=== PATIENT | female | born 1990 | race Hispanic/Latino ===

== ENCOUNTER → 2025-01-26 | Day surgery (SDC) | payer SELFPAY ==
[~2025-01-26] MED LIST: DICYCLOMINE HCL10 MG PO; DOXYCYCLINE HY100 MG PO; FAMOTIDINE20 MG PO; LIDOCAINE HCL 2% LOCAL INJ 5 ML SDV VIAL INJ ONE; MIDAZOLAM HCL 2 MG/2 ML VIAL ONE; MULTI-VITAMIN1 EACH PO; PROPOFOL IV EMULSION 10 MG/ML 20 ML VIAL ONE
[2025-01-26] MEDS: LACTATED RINGER'S 1,000 ML ONE (13:25)
[2025-01-26 15:10] VITALS: TEMP 97
[2025-01-26 15:30] VITALS: BP 113/72; PULSE 61; RESP 18; O2SAT 100
== END | disposition home or self-care (01) ==
LOC: OR 12:35
PROVIDERS: ATTEND Internal Medicine Gastroenterology
DX: K29.50 Unspecified chronic gastritis without bleeding (principal); Z86.0100 Personal history of colon polyps, unspecified; K31.7 Polyp of stomach and duodenum; K21.00 Gastro-esophageal reflux disease with esophagitis, without bleeding; K21.9 Gastro-esophageal reflux disease without esophagitis; K58.9 Irritable bowel syndrome, unspecified; K31.89 Other diseases of stomach and duodenum; R19.8 Other specified symptoms and signs involving the digestive system and abdomen; K64.8 Other hemorrhoids; R63.4 Abnormal weight loss; D72.820 Lymphocytosis (symptomatic); L40.9 Psoriasis, unspecified; Z79.1 Long term (current) use of non-steroidal anti-inflammatories (NSAID); Z68.34 Body mass index [BMI] 34.0-34.9, adult
CPT/HCPCS: 36415; 43239; 45380; 84702; J2003; J2250; J2704; J7121; 45378